=== PATIENT | male | born 1940 | race Caucasian/White ===

== ENCOUNTER → 2023-02-12 | Outpatient (CLI) | payer MEDICARE ==
[~2023-02-12] MED LIST: AEC81 PO; MULT-660 PO; OMEG-136 PO; REGADENOSON 0.4 MG/5 ML PF SYG IVP ONE; ROSU10TA22 PO; SAW PALMETTO PO; SELENIUM PO; ZINC PO
== END | disposition home or self-care (01) ==
LOC: SHCH 09:19
PROVIDERS: ATTEND Internal Medicine Cardiovascular Disease
DX: I25.10 Atherosclerotic heart disease of native coronary artery without angina pectoris (principal); Z95.5 Presence of coronary angioplasty implant and graft; Z79.82 Long term (current) use of aspirin; Z79.899 Other long term (current) drug therapy
CPT/HCPCS: 78452; 96374; 93017; J2785; A9500 ×2

== ENCOUNTER → 2024-02-29 | Outpatient (CLI) | payer MEDICARE ==
[~2024-02-29] MED LIST changes: -REGADENOSON 0.4 MG/5 ML PF SYG IVP ONE
[2024-02-29] MEDS: REGADENOSON 0.4 MG/5 ML PF SYG IVP ONE (11:21)
== END | disposition home or self-care (01) ==
LOC: SHCH 08:31
PROVIDERS: ATTEND Internal Medicine Cardiovascular Disease
DX: I25.10 Atherosclerotic heart disease of native coronary artery without angina pectoris (principal); R06.09 Other forms of dyspnea
CPT/HCPCS: 78452; 96374; 93017; J2785; A9500 ×2